=== PATIENT | female | born 1980 | race Caucasian/White ===

== ENCOUNTER 2016-09-12 18:43 | Emergency (ER) | payer OTHER ==
[~2016-09-12] VITALS: Ht 170.2 cm; Wt 99.8 kg
[~2016-09-12 18:43] MED LIST: BACTRIM DS TAB1 EACH PO; BENTYL 20 MG TA20 M1 PO; BENTYL10 MG PO; CEFTIN500 MG PO; FERROUS SULFAT325 M1 PO; HYDROCODONE-AP1 EAC6 PO; K-DUR 20 MEQ T20 MEQ PO; LANSOPRAZOLE30 MG PO; LIDODERM 5%1 PATC1 TRANSDERM; LOMOTIL TABLET1 EACH PO; MAG-OX 400 TAB400 M1; MAGOX 400400 MG PO; MULTIVITAMINS; NORCO 5-325 TA1 EACH PO; NORVASC 5 MG TAB5 MG PO; ONDANSETRON HCL4 M2 PO; OS-CAL 500+D C1 EACH; OXYCODONE HCL 55 MG PO; PERCOCET 5-3251 EACH PO; PHENERGAN 25 MG25 M1 PO; POTASSIUM20; POTASSIUM20 PO; PRENATAL; PREVACID30 MG PO; PRILOSEC 20 MG20 MG PO; PROGRAF1 MG PO; PROTONIX40 MG PO; ROXICODONE5 M1 PO; TYLENOL325 MG PO; UNKNOWN DIURETIC; VANCO1GM; ZOFRAN ODT4 MG PO; ZOFRAN4 MG PO
[2016-09-12 19:21] LABS: URINE BILIRUBIN NEGATIVE (Negative); URINE BLOOD NEGATIVE (Negative); URINE COLOR YELLOW; URINE GLUCOSE-RANDOM* NEGATIVE (Negative); URINE KETONES NEGATIVE (Negative); URINE LEUKOCYTES-REFLEX NEGATIVE (Negative); URINE PROTEIN (DIPSTICK) TRACE (Negative)
[2016-09-12 19:43] LABS: ABSOLUTE NEUTROPHILS 2.5 thou/uL (1.4-8.2); BASOPHILS 0.7 % (0.0-2.0); EOSINOPHILS 7.6 % (0.0-3.0); HEMATOCRIT 37.4 % (37.0-47.0); HEMOGLOBIN 12.7 gm/dL (12.0-15.0); LYMPHOCYTES 32.3 % (24.0-44.0); MCH 28.4 pg (26.0-34.0); MCV 83.6 fL (80.0-100.0); MONOCYTES 10.6 % (1.0-8.0); PLATELET COUNT 180 thou/uL (150-400); POLYS 48.8 % (36.0-66.0); RBC 4.47 mil/uL (4.20-5.00)
[2016-09-12 19:45] LABS: MANUAL DIFF NO
[2016-09-12 19:50] LABS: CALCIUM 8.3 mg/dL (8.5-10.1); CREATININE 0.8 mg/dL (0.6-1.0); POTASSIUM 3.3 mmol/L (3.5-5.1)
[2016-09-12 19:54] LABS: ALBUMIN 3.2 g/dL (3.4-5.0)
[2016-09-12] MEDS ORDERED: BENTYL 20 MG TA20 M1 PO (20:01)
[2016-09-12] MEDS ORDERED: ONDANSETRON HCL4 M2 PO (20:01)
[2016-09-12 20:09] VITALS: BP 118/79
== END 2016-09-12 20:10 | disposition home or self-care (01) ==
LOC: ER 18:43
PROVIDERS: Physician Assistant
DX: R10.31 Right lower quadrant pain (principal); E87.6 Hypokalemia; R11.0 Nausea; I10 Essential (primary) hypertension; J45.909 Unspecified asthma, uncomplicated; K58.9 Irritable bowel syndrome, unspecified; M81.0 Age-related osteoporosis without current pathological fracture; K72.10 Chronic hepatic failure without coma; Z91.041 Radiographic dye allergy status; Z88.5 Allergy status to narcotic agent; Z88.1 Allergy status to other antibiotic agents; Z88.6 Allergy status to analgesic agent; Z88.8 Allergy status to other drugs, medicaments and biological substances; Z87.891 Personal history of nicotine dependence

== ENCOUNTER 2016-11-19 17:58 | Emergency (ER) | payer OTHER ==
[~2016-11-19] VITALS: Ht 170.2 cm; Wt 104.3 kg
[2016-11-19 18:45] LABS: HEMATOCRIT 35.3 % (37.0-47.0); HEMOGLOBIN 11.9 gm/dL (12.0-15.0); MCH 28.9 pg (26.0-34.0); MCHC 33.6 g/dL (28.0-37.0); PLATELET COUNT 200 thou/uL (150-400); RDW 16.3 % (10.5-14.5); WBC 4.4 thou/uL (4.0-11.0)
[2016-11-19 18:48] LABS: MANUAL DIFF YES
[2016-11-19 18:58] LABS: CALCIUM 8.3 mg/dL (8.5-10.1); CREATININE 0.8 mg/dL (0.6-1.0); POTASSIUM 3.6 mmol/L (3.5-5.1)
[2016-11-19 19:00] LABS: ALBUMIN 2.8 g/dL (3.4-5.0); TOTAL BILIRUBIN 0.9 mg/dL (<0.1-1.0); TOTAL PROTEIN 6.9 g/dL (6.4-8.2)
[2016-11-19 19:23] LABS: ABSOLUTE NEUTROPHILS 2.1 thou/uL (1.4-8.2); ANISOCYTOSIS 1+; TOTAL CELL COUNT 100
[2016-11-19] MEDS ORDERED: BENTYL 20 MG TA20 M1 PO (19:40)
[2016-11-19] MEDS ORDERED: PHENERGAN 25 MG25 M1 PO (19:40)
[2016-11-19] MEDS ORDERED: ZOFRAN ODT4 MG PO (19:40)
[2016-11-19] MEDS ORDERED: LOPERAMIDE 2 MG2 M1 PO (19:40)
[2016-11-19 20:11] VITALS: BP 134/69
== END 2016-11-19 20:12 | disposition home or self-care (01) ==
LOC: ER 17:58
PROVIDERS: Emergency Medicine
DX: K52.9 Noninfective gastroenteritis and colitis, unspecified (principal); I10 Essential (primary) hypertension; J45.909 Unspecified asthma, uncomplicated; M81.0 Age-related osteoporosis without current pathological fracture; K72.10 Chronic hepatic failure without coma; Z91.041 Radiographic dye allergy status; Z88.6 Allergy status to analgesic agent; Z88.1 Allergy status to other antibiotic agents; Z87.891 Personal history of nicotine dependence

== ENCOUNTER 2017-01-06 12:01 | Emergency (ER) | payer OTHER ==
[~2017-01-06] VITALS: Ht 170.2 cm; Wt 104.3 kg
[~2017-01-06 12:01] MED LIST changes: +LOPERAMIDE 2 MG2 M1 PO
[2017-01-06 13:23] LABS: HEMATOCRIT 35.5 % (37.0-47.0); HEMOGLOBIN 11.7 gm/dL (12.0-15.0); MCH 27.8 pg (26.0-34.0); MCHC 32.8 g/dL (28.0-37.0); MCV 84.8 fL (80.0-100.0); PLATELET COUNT 157 thou/uL (150-400); RBC 4.19 mil/uL (4.20-5.00); RDW 16.7 % (10.5-14.5); WBC 3.9 thou/uL (4.0-11.0)
[2017-01-06 13:24] LABS: MANUAL DIFF YES
[2017-01-06 13:36] LABS: CALCIUM 8.8 mg/dL (8.5-10.1); CREATININE 0.8 mg/dL (0.6-1.0); POTASSIUM 3.9 mmol/L (3.5-5.1)
[2017-01-06 13:41] LABS: DIRECT BILIRUBIN 0.3 mg/dL (<0.1-0.3); TOTAL BILIRUBIN 0.9 mg/dL (<0.1-1.0); TOTAL PROTEIN 6.6 g/dL (6.4-8.2)
[2017-01-06 13:46] LABS: ABSOLUTE NEUTROPHILS 2.3 thou/uL (1.4-8.2); ANISOCYTOSIS 1+; TOTAL CELL COUNT 100
[2017-01-06] MEDS ORDERED: ULTRAM 50MG TAB50 MG PO (14:10)
[2017-01-06 14:17] LABS: URINE BLOOD TRACE (Negative); URINE COLOR YELLOW; URINE GLUCOSE-RANDOM* NEGATIVE (Negative); URINE KETONES TRACE (Negative); URINE NITRITE NEGATIVE (Negative); URINE PROTEIN (DIPSTICK) TRACE (Negative)
[2017-01-06 14:24] LABS: ICTOTEST (BILI CONFIRMATORY) Negative (Negative); URINE BILIRUBIN NEGATIVE (Negative)
[2017-01-06 14:48] VITALS: BP 143/82
== END 2017-01-06 14:52 | disposition home or self-care (01) ==
LOC: ER 12:01
PROVIDERS: Emergency Medicine
DX: N83.202 Unspecified ovarian cyst, left side (principal); I10 Essential (primary) hypertension; J45.909 Unspecified asthma, uncomplicated; K58.9 Irritable bowel syndrome, unspecified; K72.10 Chronic hepatic failure without coma; Z91.041 Radiographic dye allergy status; Z88.5 Allergy status to narcotic agent; Z88.1 Allergy status to other antibiotic agents; Z88.6 Allergy status to analgesic agent; Z87.891 Personal history of nicotine dependence

== ENCOUNTER 2017-02-24 21:31 | Emergency (ER) | payer OTHER ==
[~2017-02-24] VITALS: Ht 170.2 cm; Wt 95.3 kg
[~2017-02-24 21:31] MED LIST changes: +ULTRAM 50MG TAB50 MG PO
[2017-02-24 22:09] LABS: URINE BILIRUBIN NEGATIVE (Negative); URINE BLOOD NEGATIVE (Negative); URINE COLOR YELLOW; URINE GLUCOSE-RANDOM* NEGATIVE (Negative); URINE KETONES NEGATIVE (Negative); URINE LEUKOCYTES-REFLEX NEGATIVE (Negative); URINE PROTEIN (DIPSTICK) NEGATIVE (Negative); URINE SPECIFIC GRAVITY 1.015 (1.003-1.035)
[2017-02-24 22:45] LABS: HEMATOCRIT 32.9 % (37.0-47.0); MCH 27.3 pg (26.0-34.0); MCHC 33.4 g/dL (28.0-37.0); MCV 81.5 fL (80.0-100.0); PLATELET COUNT 177 thou/uL (150-400); RBC 4.03 mil/uL (4.20-5.00); RDW 16.8 % (10.5-14.5); WBC 5.1 thou/uL (4.0-11.0)
[2017-02-24 22:46] LABS: MANUAL DIFF YES
[2017-02-24 23:00] LABS: CALCIUM 8.2 mg/dL (8.5-10.1); CREATININE 0.8 mg/dL (0.6-1.0); POTASSIUM 3.1 mmol/L (3.5-5.1)
[2017-02-24 23:09] LABS: ALBUMIN 2.7 g/dL (3.4-5.0); TOTAL BILIRUBIN 1.1 mg/dL (<0.1-1.0); TOTAL PROTEIN 6.5 g/dL (6.4-8.2)
[2017-02-24 23:10] LABS: URINE BLOOD 2+ (Negative); URINE COLOR YELLOW; URINE GLUCOSE-RANDOM* NEGATIVE (Negative); URINE KETONES NEGATIVE (Negative); URINE NITRITE NEGATIVE (Negative); URINE PROTEIN (DIPSTICK) TRACE (Negative); URINE SPECIFIC GRAVITY 1.015 (1.003-1.035); URINE UROBILINOGEN >= 8.0 E.U./dl (0.2-1.0)
[2017-02-24 23:13] LABS: ICTOTEST (BILI CONFIRMATORY) Negative (Negative); URINE BILIRUBIN NEGATIVE (Negative)
[2017-02-24 23:20] LABS: CASTS None Seen /LPF (None Seen); SQUAMOUS >10 Many /LPF (0-3); URINE RBC 3-10 Few /HPF (0-2); URINE WBC 0-5 Rare /HPF (0-5)
[2017-02-24 23:21] LABS: BACTERIA 1-9 Few /HPF (None Seen); CRYSTALS None Seen /LPF (None Seen)
[2017-02-24 23:25] LABS: ABSOLUTE NEUTROPHILS 2.9 thou/uL (1.4-8.2); ANISOCYTOSIS 1+; TOTAL CELL COUNT 100
[2017-02-25 04:16] VITALS: BP 122/74
== END 2017-02-25 04:18 | disposition short-term general hospital (02) ==
LOC: ER 21:31
PROVIDERS: Emergency Medicine
DX: R18.8 Other ascites (principal); K83.8 Other specified diseases of biliary tract; Z88.8 Allergy status to other drugs, medicaments and biological substances; F17.210 Nicotine dependence, cigarettes, uncomplicated; Z87.891 Personal history of nicotine dependence

== ENCOUNTER 2017-06-07 17:35 | Emergency (ER) | payer OTHER ==
[~2017-06-07] VITALS: Ht 170.2 cm; Wt 104.3 kg
[~2017-06-07 17:35] MED LIST changes: +CORTEF 20 MG TA20 MG PO; +HYDROCORTISONE10 MG PO; +PROMS25 WY RECTAL; +SLOW-MAG64 M1 PO
[2017-06-07 19:38] LABS: URINE BILIRUBIN NEGATIVE (Negative); URINE BLOOD 2+ (Negative); URINE CLARITY CLEAR; URINE COLOR YELLOW; URINE GLUCOSE-RANDOM* NEGATIVE (Negative); URINE KETONES NEGATIVE (Negative); URINE LEUKOCYTES NEGATIVE (Negative); URINE NITRITE NEGATIVE (Negative); URINE PROTEIN (DIPSTICK) NEGATIVE (Negative); URINE UROBILINOGEN 0.2 E.U./dl (0.2-1.0)
[2017-06-07 19:38] LABS: ABSOLUTE NEUTROPHILS 1.9 thou/uL (1.4-8.2); BASOPHILS 1.2 % (0.0-2.0); EOSINOPHILS 3.8 % (0.0-3.0); HEMATOCRIT 33.5 % (37.0-47.0); HEMOGLOBIN 10.9 gm/dL (12.0-15.0); LYMPHOCYTES 27.4 % (24.0-44.0); MCH 26.5 pg (26.0-34.0); MCHC 32.6 g/dL (28.0-37.0); MCV 81.3 fL (80.0-100.0); MONOCYTES 11.4 % (1.0-8.0); PLATELET COUNT 165 thou/uL (150-400); POLYS 56.2 % (36.0-66.0); RBC 4.12 mil/uL (4.20-5.00); RDW 17.3 % (10.5-14.5); WBC 3.3 thou/uL (4.0-11.0)
[2017-06-07] MEDS ORDERED: PHENERGAN 25 MG25 M1 PO (19:41)
[2017-06-07] MEDS ORDERED: PROMS25 WY RECTAL (19:41)
[2017-06-07] MEDS ORDERED: ZOFRAN ODT4 MG PO (19:41)
[2017-06-07 19:49] LABS: SQUAMOUS 0-3 Few /LPF (0-3)
[2017-06-07 19:50] LABS: BACTERIA 1-9 Few /HPF (None Seen); CASTS None Seen /LPF (None Seen); CRYSTALS None Seen /LPF (None Seen); URINE RBC 0-2 Rare /HPF (0-2); URINE WBC 0-5 Rare /HPF (0-5)
[2017-06-07 20:00] LABS: CALCIUM 8.7 mg/dL (8.5-10.1); CREATININE 0.8 mg/dL (0.6-1.0); DIRECT BILIRUBIN 0.3 mg/dL (<0.1-0.3); TOTAL BILIRUBIN 1.1 mg/dL (<0.1-1.0); TOTAL PROTEIN 6.8 g/dL (6.4-8.2)
[2017-06-07 20:01] LABS: POTASSIUM 2.8 mmol/L (3.5-5.1)
[2017-06-07] MEDS ORDERED: POTASSIUM20 PO (20:21)
[2017-06-07] MEDS ORDERED: SLOW-MAG64 M1 PO (20:21)
[2017-10-21] MEDS ORDERED: OXYCODONE HCL 55 MG PO (16:26)
[2017-10-21] MEDS ORDERED: ONDANSETRON HCL4 M2 PO (16:26)
[2017-10-21] MEDS ORDERED: POTASSIUM20 PO (16:30)
== END 2017-06-07 21:09 | disposition home or self-care (01) ==
LOC: ER 17:35
PROVIDERS: Emergency Medicine
DX: R10.9 Unspecified abdominal pain (principal); E87.6 Hypokalemia; E83.42 Hypomagnesemia; R11.2 Nausea with vomiting, unspecified; Z87.891 Personal history of nicotine dependence; Z88.8 Allergy status to other drugs, medicaments and biological substances; Z88.6 Allergy status to analgesic agent

== ENCOUNTER 2017-08-05 13:16 | Emergency (ER) | payer OTHER ==
[~2017-08-05] VITALS: Ht 170.2 cm; Wt 95.3 kg
[2017-08-05] MEDS ORDERED: PROGRAF 1 MG1 MG PO (14:13)
[2017-08-05 14:46] LABS: URINE BILIRUBIN NEGATIVE (Negative); URINE BLOOD NEGATIVE (Negative); URINE CLARITY CLEAR; URINE COLOR YELLOW; URINE GLUCOSE-RANDOM* NEGATIVE (Negative); URINE KETONES NEGATIVE (Negative); URINE LEUKOCYTES-REFLEX NEGATIVE (Negative); URINE NITRITE-REFLEX NEGATIVE (Negative); URINE PROTEIN (DIPSTICK) NEGATIVE (Negative); URINE SPECIFIC GRAVITY 1.015 (1.005-1.035)
[2017-08-05 14:48] LABS: HEMOGLOBIN 10.9 gm/dL (12.0-15.0); MCH 26.1 pg (26.0-34.0); MCHC 33.1 g/dL (28.0-37.0); MCV 78.6 fL (80.0-100.0); PLATELET COUNT 182 thou/uL (150-400); RDW 18.7 % (10.5-14.5); WBC 2.6 thou/uL (4.0-11.0)
[2017-08-05 14:54] LABS: CALCIUM 8.3 mg/dL (8.5-10.1); CREATININE 0.8 mg/dL (0.6-1.0); POTASSIUM 3.8 mmol/L (3.5-5.1)
[2017-08-05 15:00] LABS: ALBUMIN 2.9 g/dL (3.4-5.0); TOTAL BILIRUBIN 0.9 mg/dL (<0.1-1.0); TOTAL PROTEIN 6.9 g/dL (6.4-8.2)
[2017-08-05 15:19] LABS: ABSOLUTE NEUTROPHILS 0.9 thou/uL (1.4-8.2); ANISOCYTOSIS 2+; MICROCYTES 2+
[2017-08-05] MEDS ORDERED: ULTRAM 50MG TAB50 MG PO (15:25)
[2017-08-05] MEDS ORDERED: ZOFRAN ODT4 MG PO (15:25)
[2017-08-05] MEDS ORDERED: PROTONIX40 M1 PO (15:32)
[2017-10-21] MEDS ORDERED: OXYCODONE HCL 55 MG PO (16:26)
[2017-10-21] MEDS ORDERED: ONDANSETRON HCL4 M2 PO (16:26)
[2017-10-21] MEDS ORDERED: POTASSIUM20 PO (16:30)
== END 2017-08-05 16:00 | disposition home or self-care (01) ==
LOC: ER 13:16
PROVIDERS: Emergency Medicine
DX: G89.29 Other chronic pain (principal); R10.13 Epigastric pain; R11.2 Nausea with vomiting, unspecified; I10 Essential (primary) hypertension; J45.909 Unspecified asthma, uncomplicated; Z88.1 Allergy status to other antibiotic agents; Z88.8 Allergy status to other drugs, medicaments and biological substances; Z87.891 Personal history of nicotine dependence